=== PATIENT | female | born 1940 | race Caucasian/White ===

== ENCOUNTER → 2022-05-22 | Day surgery (SDC) | payer MEDICARE, OTHER | LOC: MSO 09:50 | DX: H25.811 Combined forms of age-related cataract, right eye (principal) | CPT/HCPCS: 00142; J0171; J2250; V2632 ==

== ENCOUNTER → 2022-06-19 | Day surgery (SDC) | payer MEDICARE, OTHER | LOC: MSO 01:36 | DX: H25.812 Combined forms of age-related cataract, left eye (principal) | CPT/HCPCS: 00142; J0171; J2250; V2632 ==